=== PATIENT | male | born 1985 | race Caucasian/White ===

== ENCOUNTER 2018-08-15 14:30 | Observation (INO) | payer OTHER ==
[2018-08-15 15:11] LABS: PLATELET COUNT 222 10^3/uL (150-400)
--- NOTE | 2018-08-15 15:11 | EDPHY ---
HPI/HX/ROS/PE/MDM Narrative: CHIEF COMPLAINT: Abdominal pain HPI: This patient is a healthy 32-year-old male. He complains of abdominal pain onset last night around midnight. The pain was initially generalized and felt like pressure of bloating. Now, it is primarily periumbilical and a cramping pain. He vomited once last night. Since then, he endorses lack of appetite and mild nausea. He denies constipation, diarrhea, or blood in his stool. His pain is exacerbated by movement. He denies any history of abdominal surgeries. He did eat a small amount this morning, but not much as it made him feel more nauseous. The patient notes he has had some episodes of similar discomfort four times over the past two years. Two of these have been associated with alcohol consumption, but twice there have been no known precipitating factors. He did drink this weekend on Wednesday for his bachelor constitution party, but presents as his symptoms generally resolve quickly and today they have persisted. REVIEW OF SYSTEMS: A comprehensive 10 system review of systems is otherwise negative aside from elements mentioned in the history of present illness and medical decision making. PMH: Denies. SOCIAL HISTORY: Works at [employer] as an [employer]. PHYSICAL EXAM: General:Patient is alert, in no acute distress. ENT:Eyes are normal to inspection. ENT inspection normal. Neck: Normal inspection. Full range of motion. Respiratory:No respiratory distress. Breath sounds normal bilaterally. Cardiovascular: Regular rate and rhythm. Strong peripheral pulses. Normal cap refill. Abdomen: Right lower quadrant tenderness. There are no peritoneal signs. There are normal bowel sounds. Back: Normal to inspection. No tenderness to palpation. Skin: Normal color. No rash. Warm and dry. Extremities: Normal appearance. Full range of motion. Neuro: Oriented x3. Normal motor function. Normal sensory function. ED Course: 32-year-old male presents with 15 hour history of abdominal pain. On exam, he has right lower quadrant tenderness. Plan for labs including CBC, chemistries, UA. He declines any pain or antinausea medication at this time. Plan for CT abdomen/pelvis for further evaluation. WBC elevated at 16,500. Labs otherwise unremarkable. CT pending. 16:[address] Chow, radiologist. CT abdomen/pelvis is positive for appendicitis. Reassessed patient. Discussed imaging results. The patient is quite nervous as his wedding in this weekend and he plans to travel to [facility] next week for his honeymoon. Plan to consult with general surgery. Plan to administer 1g IV Rocephin, 500mg IV Flagyl, and 1L IV NS. I again offered Toradol for any discomfort, but the patient continues to decline pain medication at this time. 16:[address] Hdez, general surgeon. He will evaluate the patient. The patient will undergo appendectomy today. Dr. Hdez accepts admission for perioperative management. - Data Points Imaging Results: Imaging Impressions Abdomen CT 08/15/18 15:27 Impression: 1. Acute appendicitis/periappendicitis. There is a small amount of free fluid in the caudal right paracolic gutter and in the central pelvis, but no evidence of pneumoperitoneum. 2. Tiny benign left hepatic cysts, and tiny bilateral renal cortical cysts. 3. There is a grade 1 anterolisthesis at L5-S1 with accompanying spondylolysis, and mild broad-based circumferential disk bulging. Findings were discussed with Mars Mayfield MD at 16:19, on 08/15/2018. Imaging: Discussed imaging studies w/ call center representative Radiologist Laboratory Results: Laboratory Results 08/15/18 15:00 08/15/18 15:00 08/15/18 08/15/18 08/15/18 16:10 15:00 15:00 WBC 16.53 10^3/uL H 10^3/uL (3.80-9.50) RBC 5.15 10^6/uL 10^6/uL (4.40-6.38) Hgb 14.9 g/dL g/dL (13.7-17.5) Hct 43.0 % % (40.0-51.0) MCV 83.5 fL fL (81.5-99.8) MCH 28.9 pg pg (27.9-34.1) MCHC 34.7 g/dL g/dL (32.4-36.7) RDW 12.9 % % (11.5-15.2) Plt Count 222 10^3/uL 10^3/uL (150-400) MPV 10.1 fL fL (8.7-11.7) Neut % (Auto) 89.2 % H % (39.3-74.2) Lymph % (Auto) 5.0 % L % (15.0-45.0) [place] % (Auto) 5.4 % % (4.5-13.0) Eos % (Auto) 0.0 % L % (0.6-7.6) Baso % (Auto) 0.2 % L % (0.3-1.7) Nucleat RBC Rel Count 0.0 % % (0.0-0.2) Absolute Neuts (auto) 14.74 10^3/uL H 10^3/uL (1.70-6.50) Absolute Lymphs (auto) 0.83 10^3/uL L 10^3/uL (1.00-3.00) Absolute Monos (auto) 0.89 10^3/uL H 10^3/uL (0.30-0.80) Absolute Eos (auto) 0.00 10^3/uL L 10^3/uL (0.03-0.40) Absolute Basos (auto) 0.03 10^3/uL 10^3/uL (0.02-0.10) Absolute Nucleated RBC 0.00 10^3/uL 10^3/uL (0-0.01) Immature Gran % 0.2 % % (0.0-1.1) Immature Gran # 0.04 10^3/uL 10^3/uL (0.00-0.10) Sodium 135 mEq/L mEq/L (135-145) Potassium 3.8 mEq/L mEq/L (3.5-5.2) Chloride 102 mEq/L mEq/L (97-110) Carbon Dioxide 25 mEq/l mEq/l (22-31) Anion Gap 8 mEq/L mEq/L (6-14) BUN 12 mg/dL mg/dL (7-23) Creatinine 0.7 mg/dL mg/dL (0.7-1.3) Estimated GFR > 60 Glucose 124 mg/dL H mg/dL (70-100) Calcium 9.8 mg/dL mg/dL (8.5-10.4) Urine Color PALE YELLOW Urine Appearance CLEAR Urine pH 8.0 H (5.0-7.5) Ur Specific [place] 1.020 (1.002-1.030) Urine Protein NEGATIVE (NEGATIVE) Urine Ketones NEGATIVE (NEGATIVE) Urine Blood NEGATIVE (NEGATIVE) Urine Nitrate NEGATIVE (NEGATIVE) Urine Bilirubin NEGATIVE (NEGATIVE) Urine Urobilinogen NEGATIVE EU EU (0.2-1.0) Ur Leukocyte Esterase NEGATIVE (NEGATIVE) Urine Glucose NEGATIVE (NEGATIVE) Medications Given: Ceftriaxone Sodium/Dextrose (Rocephin 1 Gm (Premix)) 50 mls @ 100 mls/hr IV EDNOW ONE PRN Reason: Protocol Stop: 08/15/18 16:59 Last Admin: 08/15/18 16:43 Dose: 50 mls Discontinued Medications Sodium Chloride (Ns) 1,000 mls @ 0 mls/hr IV EDNOW ONE; Wide Open PRN Reason: Protocol Stop: 08/15/18 16:31 Last Admin: 08/15/18 16:43 Dose: 1,000 mls General Time Seen by Provider: 08/15/18 14:53 Initial Vital Signs: Initial Vital Signs Temperature (C) 37.0 C 08/15/18 14:38 Heart Rate 94 08/15/18 14:38 Respiratory Rate 18 08/15/18 14:38 Blood Pressure 118/88 H 08/15/18 14:38 O2 Sat (%) 97 08/15/18 14:38 O2 Delivery Mode Room Air Allergies/Adverse Reactions: No Known Allergies Allergy (Unverified 08/15/18 14:38) Home Medications: Medication Instructions Recorded NK [No Known Home Meds] 08/15/18 Departure - Departure Disposition: [facility] Inpatient Acute Clinical Impression: Acute appendicitis Qualifiers: Acute appendicitis type: other Qualified Code(s): K35.890 - Other acute appendicitis without perforation or gangrene Condition: Fair Referrals: NONE *PRIMARY CARE P,. [Primary Care Provider] - As per Instructions Report Scribed for: Mars Mayfield Report Scribed by: Pati Monique Date of Report: 08/15/18 Time of Report: 15:56 Physician Review and Approval Statement: Portions of this note were transcribed by an ED scribe. I personally performed the history, physical exam, and medical decision making; and confirm the accuracy of the information in the transcribed note.
[2018-08-15] MEDS ORDERED: IOHEXOL 300 mgI/ML (OMNIPAQUE) 150 ML BTL IV ONE (15:36)
[2018-08-15] MEDS ORDERED: NS 1,000 ML IV ONE (16:30)
[2018-08-15] MEDS ORDERED: LR 1,000 ML IV ONE (17:32)
[2018-08-15] MEDS ORDERED: HYDROmorphONE/DILAUDID 1 MG/ML INJ IVP PRN (17:37)
--- NOTE | 2018-08-15 17:51 | GHP ---
[f rep st] HISTORY AND PHYSICAL DATE OF ADMISSION: 08/15/2018 ADMITTING DIAGNOSIS: Acute unruptured appendicitis by CT scan. HISTORY: The patient is a 32-year-old white male who will be getting this coming weekend. He went to a [employer] constitution party on Wednesday and had mild abdominal discomfort. It was on Wednesday after eating half a sandwich at 9 p.m. ( less than he usually would eat), that he had the onset of a generalized abdominal pain which became much more intense by midnight. By 4 a.m., he had nausea and vomiting. At 7 a.m., he felt a little better. During the course of the day, the pain became worse. He has had 3 prior episodes in the last 3 years , usually lasting 3-5 hours. He has not had a recent upper respiratory tract infection or diarrhea. There is no history of antibiotic use or travel in the last 6 months. There is no history of prior abdominal surgery. No history of inflammatory bowel disease. A white count was obtained in the ER which was 16.5 , and a CT scan is consistent with acute nonruptured appendicitis. I was asked to come see the patient. SOCIAL HISTORY: He does not smoke. He drinks 1-3 drinks per night. ALLERGIES: He has no known drug allergies. MEDICATIONS: He does not take any medications. PAST SURGICAL HISTORY: He has had no prior surgeries. He did have his left hand set under anesthesia when he fractured it as a young man. PAST MEDICAL HISTORY: There is no history of rheumatic fever, tuberculosis, hepatitis, or transfusions. REVIEW OF SYSTEMS: He wears lenses for visual correction. Review of systems otherwise quite negative. There are no limits on his activities and no history of steroid use. FAMILY HISTORY: His mother is alive and well at 62. His father is alive and well at 66. He is an only child. There are no bleeding disorders, clotting disorders, difficulty with anesthesia in the patient or the family. Note is made he did grow up in [place] until age 12 and then immigrated. PHYSICAL EXAMINATION: VITAL SIGNS: His blood pressure is 140/88, at 81. His room air saturation is 97%. Respirations are 16. GENERAL APPEARANCE: He is awake and alert and communicative. HEAD: Skull is normocephalic and atraumatic. NECK: There are no carotid bruits. Thyroid is not enlarged. LYMPHATICS: There is no cervical, supraclavicular, axillary, or inguinal lymphadenopathy. BACK: Unremarkable. CHEST: Lungs are clear to auscultation. CARDIAC: Shows S1, S2 to be normal with normal split of S2 without murmurs, rubs, or gallops. EXTREMITIES: Unremarkable. ABDOMEN: He is tender with cough in the right lower quadrant. DIAGNOSTIC DATA: CT scan as mentioned above shows signs consistent with acute appendicitis. There is a thickening of the appendix. There is hyperemia of the wall and periappendiceal smudging. His white count as mentioned was 16.5 with 89% segs. Hematocrit is 43. His platelet count is 222. His glucose was 124. Specific gravity is 1.020. We have talked about alternative treatment of appendicitis including IV antibiotics. He would like to proceed with a surgical approach. I think that is most appropriate. /[id number]/MODL MTDD
[2018-08-15] MEDS ORDERED: HEPARIN 5,000 UNIT/0.5 ML INJ ONE (17:54)
[2018-08-15] MEDS ORDERED: ceFAZolin 1 GM/5 ML SYR ONE (17:55)
[2018-08-15] MEDS ORDERED: LR 1,000 ML IV SCH (18:00)
[2018-08-15] MEDS ORDERED: fentaNYL 100 MCG/2 ML INJ ONE ×2 (18:25→18:51)
[2018-08-15] MEDS ORDERED: MIDAZOLAM 2 MG/2 ML VIAL ONE (18:26)
[2018-08-15] MEDS ORDERED: PROPOFOL/EMULSION 500 MG/50 ML BOTTLE IV ONE (18:26)
[2018-08-15] MEDS ORDERED: MEPERIDINE 25 MG/0.5 ML AMP IVP PRN (18:56)
[2018-08-15] MEDS ORDERED: ALBUTEROL 3 ML DEYVIAL IH PRN (18:56)
[2018-08-15] MEDS ORDERED: LR 500 ML IV PRN (18:56)
[2018-08-15] MEDS ORDERED: DEXAMETHASONE 4 MG/ML VIAL IVP PRN (18:56)
[2018-08-15] MEDS ORDERED: DIAZEPAM 5 MG/ML 1 ML SYR IVP PRN (18:56)
[2018-08-15] MEDS ORDERED: NALOXONE HCL 0.4 MG/ML INJ IVP PRN (18:56)
[2018-08-15] MEDS ORDERED: ONDANSETRON 4 MG/2 ML VIAL IVP PRN (18:56)
[2018-08-15] MEDS ORDERED: fentaNYL 100 MCG/2 ML INJ IVP PRN (18:56)
[2018-08-15] MEDS ORDERED: PROMETHAZINE HCL 25 MG/ML INJ IVP PRN (18:56)
--- NOTE | 2018-08-15 18:56 | PDANEPAE ---
ANE Past Medical History - Pulmonary History Hx Oxygen in Use at Home: No Hx Sleep Apnea: No - Endocrine History Hx Diabetes: No ANE Review of Systems Review of Systems: ANE Patient History - Allergies Allergies/Adverse Reactions: No Known Allergies Allergy (Unverified 08/15/18 14:38) - NPO status NPO Since - Liquids (Date): 08/15/18 NPO Since - Liquids (Time): 13:00 NPO Since - Solids (Date): 08/15/18 NPO Since - Solids (Time): 10:30 - Smoking Hx Smoking Status: Never smoked ANE Labs/Vital Signs - Labs Result Diagrams: 08/15/18 15:00 08/15/18 15:00 - Vital Signs Blood Pressure: 138/86 Heart Rate: 85 Respiratory Rate: 16 O2 Sat (%): 97 Height: 170.18 cm Weight: 74.843 kg ANE Physical Exam - Airway Neck exam: FROM Mallampati Score: Class 1 Mouth exam: normal dental/mouth exam - Pulmonary Pulmonary: no respiratory distress, no rales or rhonchi - Cardiovascular Cardiovascular: regular rate and rhythym, no murmur, rub, or gallop - ASA Status ASA Status: I, E ANE Anesthesia Plan Anesthesia Plan: general endotracheal anesthesia
[2018-08-15] MEDS ORDERED: KETOROLAC 30 MG/1 ML SDV ONE (19:04)
[2018-08-15] MEDS ORDERED: RANITIDINE 50 MG/2 ML VIAL ONE (19:04)
[2018-08-15] MEDS ORDERED: ONDANSETRON 4 MG/2 ML VIAL ONE (19:04)
[2018-08-15] MEDS ORDERED: ROCURONIUM 50 MG/5 ML VIAL ONE ×2 (19:04→19:06)
[2018-08-15] MEDS ORDERED: LIDOCAINE 2% 5 ML SDV ONE (19:04)
[2018-08-15] MEDS ORDERED: METOCLOPRAMIDE 10 MG/2 ML VIAL ONE (19:04)
[2018-08-15] MEDS ORDERED: PROPOFOL 200 MG/20 ML VIAL ONE (19:06)
[2018-08-15] MEDS ORDERED: SUGAMMADEX SODIUM 200 MG/2 ML VIAL IVP ONE (19:25)
[2018-08-15] MEDS: KETOROLAC 30 MG/1 ML SDV IVP SCH (19:30)
--- NOTE | 2018-08-15 19:49 | POSTANESTH ---
Post Anesthetic Evaluation Cardiovascular Status: Normal, Stable, Similar to Pre-Op Cond Respiratory Status: Normal, Stable, Similar to Pre-op Cond. Level of Consciousness/Mental Status: Can Participate in Eval Pain Control: Adequate, Prn Tx Ordered Nausea/Vomiting Control: Adequate, Prn Tx Ordered Complications Possibly Related to Anesthesia: None Noted
--- NOTE | 2018-08-15 19:55 | POSTOPPROG ---
Post Op Note Date of Operation: 08/15/18 Surgeon: iTm Hdez Anesthesiologist: Melanie Kay Anesthesia: GET(General Endotracheal) Pre-op Diagnosis: Acute appendicitis Post-op Diagnosis: Acute unruptured appendicitis with tiny right indirect inguinal hernia Indication: Acute appendicitis Procedure: Laparoscopic appendectomy Findings: Acute unruptured appendicitis with tiny right indirect inguinal hernia Inf/Abcess present in the surg proc area at time of surgery?: No EBL: Minimal Total fluids administered: 1700cc since ER Admission Complications: none Specimen(s): appendix peritoneal fluid for C&S
[2018-08-15] MEDS ORDERED: ACETAMINOPHEN 500 MG TAB ONE (20:19)
[2018-08-15] MEDS: ACETAMINOPHEN 500 MG TAB PO SCH (20:19)
--- NOTE | 2018-08-15 22:01 | GOP ---
[f rep st] OPERATIVE REPORT DATE OF OPERATION: 08/15/2018 SURGEON: Tim Hdez MD ANESTHESIA: General endotracheal anesthesia. ANESTHESIOLOGIST: Britni Kay MD. PREOPERATIVE DIAGNOSIS: Acute appendicitis. POSTOPERATIVE DIAGNOSIS: Acute unruptured appendicitis with tiny right indirect inguinal hernia. PROCEDURE PERFORMED: Laparoscopic appendectomy. FINDINGS: Acute unruptured appendicitis with tiny right indirect inguinal hernia. SPECIMENS: Appendix and peritoneal fluid for culture and sensitivity. ESTIMATED BLOOD LOSS: Minimal. INDICATIONS: Acute appendicitis. DESCRIPTION OF PROCEDURE: The patient was placed on the operating room table in supine position. After induction of adequate general endotracheal anesthesia , the abdomen was carefully clipped, prepped, and draped. A surgical time-out was carried out and agreed to by all members of the operative team. A curvilinear incision was planned at the umbilicus. The skin was sharply incised. Dissection was continued with a combination of Bovie electrocautery and spreading technique to expose the rectus sheath bilaterally. The rectus fascia is elevated between allis clamps and was carefully opened. A pursestring of #0 PDS was placed. The peritoneum was entered. An 11/12 mm Emilee trocar was used. Intraabdominal insufflation was carried out to 15 mmHg. A small amount of purulent fluid was seen in the pelvis. This was aspirated and sent for cultures. On inspection, there was a very tiny (2 mm) right indirect inguinal hernia identified. The appendix was densely adherent to the anterior aspect of the cecum. The cecum was carefully mobilized along the white line of Toldt. This allowed the appendix to be carefully elevated and dissected from the tip down using Harmonic scalpel to its base on the cecum. The appendix was from the cecum with an Endo-MUNIR powered stapler. The appendix was taken with a small cuff of cecum. The specimen was removed in an EndoCatch bag. Irrigation was carried out. The small bowel was run for a distance of approximately 3 feet. There was no evidence of Meckel's diverticulum or mesenteric adenitis. The ports were removed under direct vision. Inverted simple suture of #0 PDS was placed in the midpoint of the vertical midline infraumbilical fascial defect. This was carefully tied. The pursestring was now tied. The umbilical site was well irrigated with heparin and Ancef-containing irrigant again. Note that a liter had been used during the course of the procedure. The skin was closed with inverted simple sutures of #4-0 Vicryl. Mastisol and Steri-Strips were placed. Band-Aids were positioned. The patient was transferred to recovery in stable and satisfactory condition. FLUIDS ADMINISTERED: 1700 cc since ER admission. COMPLICATIONS: None. /[id number]/MODL MTDD
[2018-08-16] MEDS: KETOROLAC 30 MG/1 ML SDV IVP SCH ×2 (00:12→05:28)
[2018-08-16] MEDS: ACETAMINOPHEN 500 MG TAB PO SCH ×2 (01:30→09:14)
[2018-08-16 08:14] VITALS: BP 113/70
--- NOTE | 2018-08-16 08:55 | SOAPPROG ---
SOAP Progress Note Assessment/Plan: Assessment/Plan: 32yo M POD#1 s/p lap appy for acute appendicitis Culture pending - no organisms Pain controlled Advance to regular diet as tolerated Passing flatus Voiding spontaneously Dispo: DC today. FU [address] Barahona. S: feeling well this am. no concerns. walking halls without worsening pain O: laying in bed, comfortable, NAD No increased WOB +BS, soft, distended, nontender Incisions CDI 08/16/18 09:02 08/16/18 14:30 Objective: Vital Signs Temp Pulse Resp BP Pulse Ox 37.0 C 72 18 113/70 95 08/16/18 08:13 08/16/18 08:13 08/16/18 08:13 08/16/18 08:13 08/16/18 08:13 Microbiology 08/15/18 19:02 Gram Stain - Final Peritoneal Fluid - Aspirate 08/15/18 08/16/18 08/17/18 05:59 05:59 05:59 Intake Total 8800 561 Output Total 310 Balance 2070 561 ICD10 Worksheet Patient Problems: Problems Problem Status Onset Acute appendicitis Acute
--- NOTE | 2018-08-16 09:53 | ASMTCMCOM ---
CM Note CM Note Notes: Chart reviewed for discharge planning purposes, 32 year old male s/p appendectomy. No current needs identified. CM available should other needs arise. Plan: Home no needs, Date Signed: 08/16/2018 09:52 AM Electronically Signed By:Emely Bear RN
--- NOTE | 2018-08-17 01:20 | GDS ---
[f rep st] DISCHARGE SUMMARY ADMITTING DIAGNOSIS: Acute appendicitis. SECONDARY DIAGNOSIS: None. REASON FOR ADMISSION: 32-year-old man who presented to the emergency room complaining of abdominal p ain. Abdominal CT showed acute appendicitis. He was admitted for surgical intervention, pain contro l, and observation. HOSPITAL COURSE: He was taken to the operating room by Dr. Tim Hdez on 08/15/18, for laparosco pic appendectomy. No evidence of rupture or abscess at the time of surgery. On postoperative day #1 , his pain was well controlled with oral pain medication. He was tolerating a regular diet, ambulati ng independently, and ready for discharge. CONDITION: Being discharged home in stable condition. Pain is controlled with oral pain medication, tolerating regular diet, and ambulating independently. DISCHARGE MEDICATIONS: Sent home with prescriptions for Tylenol, Toradol, and Dilaudid. Instructed to resume home medications. Please see EMR for further details. DISCHARGE INSTRUCTIONS AND FOLLOWUP: Avoid heavy lifting, pushing, or pulling x2 weeks. Avoid hot t ubs, pools, or tub baths for 2 weeks. Return to the clinic in 2 weeks for re-evaluation. Call with worsening symptoms, questions, or concerns. May shower on postoperative day #1. /[id number]/MODL
== END 2018-08-16 12:29 | disposition home or self-care (01) ==
LOC: F1N 20:45
PROVIDERS: ADMIT Surgery; ATTEND Surgery
PROC: 0DTJ4ZZ Resection of Appendix, Percutaneous Endoscopic Approach (ICD-10-PCS; principal; 2018-08-15 18:00)
DX: K35.80 Unspecified acute appendicitis (principal); K40.90 Unilateral inguinal hernia, without obstruction or gangrene, not specified as recurrent
CPT/HCPCS: 44970; 74177; 96365; 96367; 96375; 96376; 99285; G0378; J0696; J1644; J1885; J2250; J2405; J2704; J2765; J2780; J3010; Q9967